=== PATIENT | female | born 1995 | race Caucasian/White ===

== ENCOUNTER 2023-07-14 13:45 | Emergency (ER) | payer SELFPAY ==
[2023-07-14 13:51] VITALS: BP 166/97; PULSE 63; RESP 18; TEMP 36.2; O2SAT 98; BMI 32.9
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
[2023-07-14] MEDS: LIDOCAINE 1% MDV 1 ML INJ (14:40)
[2023-07-14 15:26] VITALS: BP 141/98; PULSE 63; RESP 20; O2SAT 97
[2023-07-14 15:34] VITALS: TEMP 36.6
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
[2023-07-14 15:39] VITALS: TEMP 36.6
== END 2023-07-14 15:41 | disposition home or self-care (01) ==
PROVIDERS: Emergency Provider Physician Assistant Medical
DX: S02.5XXA Fracture of tooth (traumatic), initial encounter for closed fracture (principal); S00.83XA Contusion of other part of head, initial encounter; W50.1XXA Accidental kick by another person, initial encounter
CPT/HCPCS: 64450; 70486; 99283